=== PATIENT | female | born 2000 | race Caucasian/White ===

== ENCOUNTER 2019-12-22 10:36 | Emergency (ER) | payer MEDICAID ==
[~2019-12-22] VITALS: Ht 154.9 cm; Wt 54.4 kg
[2019-12-22 10:46] VITALS: BP_SYST 134
[2019-12-22 11:20] LABS: BILIRUBIN,URINE 2+ (NEGATIVE); BLOOD, URINE NEGATIVE (NEGATIVE); CLARITY/URINE SL CLOUDY (CLEAR); COLOR,URINE YELLOW (YELLOW); GLUCOSE,URINE 2+ (NEGATIVE); KETONES,URINE TRACE (NEGATIVE); LEUKOCYTE ESTERASE ,URINE 3+ (NEGATIVE); NITRITE, URINE POSITIVE (NEGATIVE); PROTEIN URINE 2+ (NEGATIVE); UROBILINOGEN,URINE >=8 (0.2-1.0)
[2019-12-22 11:26] LABS: BACTERIA,URINE FEW /HPF (None Seen); RBC,URINE 0-3 /HPF (0-3); WBC,URINE 50-80 /HPF (0-3)
[2019-12-22] MEDS ORDERED: ACETAMINOPHEN 500 MG TABLET PO ONE (11:45)
[2019-12-22 11:47] VITALS: BP_SYST 134
== END 2019-12-22 11:47 | disposition home or self-care (01) ==
LOC: SED 10:36
DX: O99.511 Diseases of the respiratory system complicating pregnancy, first trimester (principal); J06.9 Acute upper respiratory infection, unspecified; O23.41 Unspecified infection of urinary tract in pregnancy, first trimester; Z3A.14 14 weeks gestation of pregnancy
CPT/HCPCS: 81000-TC; 87086; 99283

== ENCOUNTER 2020-02-10 21:10 | Observation (INO) | payer MEDICAID | END 2020-02-10 22:39 | disposition home or self-care (01) | LOC: SPU 21:10 | PROVIDERS: ADMIT Obstetrics & Gynecology; ATTEND Obstetrics & Gynecology | DX: O26.892 Other specified pregnancy related conditions, second trimester (principal); R10.2 Pelvic and perineal pain; Z3A.21 21 weeks gestation of pregnancy | CPT/HCPCS: 81002; G0378 ==